=== PATIENT | female | born 1995 | race Caucasian/White ===

== ENCOUNTER 2019-04-04 10:18 | Outpatient (CLI) | payer OTHER ==
[~2019-04-04] VITALS: Ht 162.6 cm; Wt 66.6 kg
[2019-04-04 10:59] VITALS: Ht 162.6 cm; Wt 66.6 kg
[2019-04-04 11:00] VITALS: BP 105/62; PULSE 101; RESP 18
[2019-04-04] MEDS ORDERED: LACTATED RINGER'S 1,000 ML IV SCH (12:00)
[2019-04-04] MEDS ORDERED: TERBUTALINE 1 MG/ML INJ SC ONE ×2 (12:00→14:00)
--- NOTE | 2019-04-04 17:29 | PN ---
Triage Information Date/Time Reason for visit: Cough and cold symptoms Weeks of Gestation 30 weeks and 2 days /Para G1 Diabetes: none Hypertention: none Objective Vital Signs Date Temp Pulse Resp B/P (MAP) Pulse Ox O2 O2 Flow FiO2 Time Delivery Rate 04/04/19 98.4 101 18 105/62 11:00 (76) Heart Rate: 140's Contractions: 6-10 Minutes Apart Results/Medications Result Diagram: 04/04/19 1155 Results 24 hrs Laboratory Tests Test 04/04/19 10:40 04/04/19 11:55 Urine Color YELLOW Urine Clarity CLEAR Urine pH 6.0 Urine Specific [place] 1.011 Urine Ketones NEGATIVE Urine Nitrite NEGATIVE Urine Bilirubin NEGATIVE Urine Urobilinogen NEGATIVE Urine Leukocyte Esterase NEGATIVE Urine Hemoglobin NEGATIVE Urine Glucose 1+ H Urine Total Protein NEGATIVE White Blood Count 13.9 H Red Blood Count 3.77 L Hemoglobin 10.4 L Hematocrit 32.3 L Mean Corpuscular Volume 85.7 Mean Corpuscular Hemoglobin 27.6 L Mean Corpuscular Hemoglobin Concent 32.2 Red Cell Distribution Width 12.7 Platelet Count 166 Mean Platelet Volume 12.7 H Immature Granulocytes % 1.000 H Neutrophils % 78.2 H Lymphocytes % 11.1 L Monocytes % 8.7 Eosinophils % 0.8 Basophils % 0.2 Nucleated Red Blood Cells % 0.0 Immature Granulocytes # 0.140 H Neutrophils # 10.9 H Lymphocytes # 1.5 Monocytes # 1.2 H Eosinophils # 0.1 Basophils # 0.0 Nucleated Red Blood Cells # 0.0 Medications Current Medications Lactated Ringer's 1,000 ml @ 125 mls/hr Q8H IV Last administered on 04/04/19at 11:53; Admin Dose 125 MLS/HR; Start 04/04/19 at 12:00 Disposition: Discharge Assessment/Plan 23 years old 1 with single intrauterine at 30 weeks and 2 days complaining of cough and cold symptoms. She states good movement. She denies nausea, vomiting, shortness of breath, chest pain, headache, visual changes, vaginal bleeding or LOF. She had one variable deceleration for 20 seconds, observed in triage for more than 2 hours after having variable deceleration, no further deceleration noted. FHR currently is category I. Biophysical profile performed which is 8 out of 8. She had uterine contractions every 4-7 minutes. Ultrasound performed, normal amniotic fluid index. Cervical length 4.3 cm. IV fluid and one dose of terbutaline given. There is no further uterine contractions. Vaginal exam: Closed/Thick/high/ceph/intact.I did rec ommend increase fluid intake, take Tylenol and Benadryl. Symptoms and sign of labor, preeclampsia, kick count discussed with patient, she voiced understanding. All of her questions answered. Patient was discharged home in stable condition with the appropriate discharge instructions provided. I would like patient to have close follow-up with her primary physician or outpatient clinic in 1-2 days or return to triage for worsening symptoms or any other urgent concerns. PAUL ZHAO Apr 04, 2019 17:29
--- NOTE | 2019-04-04 18:36 | TRIAGE ---
OB Triage Datetime Report Generated by CPN: 04/04/2019 18:36 Datetime: 04/04/2019 18:04 Stage of : OB Triage Datetime: 04/04/2019 17:59 Exam By: S KIAN Datetime: 04/04/2019 17:50 Labor Evaluation Frequency: 0 Monitor Mode: External Pattern: Normal: <= 5 Contractions in 10 Minutes Resting Tone [place]: Relaxed Heart Rate FHR Baseline Rate: 145 Monitor Mode: External US Variability: Moderate 6-25 bpm Accelerations: 10X10 Decelerations: None Category: Category I Pain Assessment Pain Scale: 0 Pain Presence: None/Denies Pain Type: N/A Pain Goal: 3 Pain Relief Measures: Comfort Measures Datetime: 04/04/2019 16:55 Labor Evaluation Frequency: 0 Monitor Mode: External Pattern: Normal: <= 5 Contractions in 10 Minutes Resting Tone [place]: Relaxed Heart Rate FHR Baseline Rate: 165 Monitor Mode: External US Variability: Moderate 6-25 bpm Accelerations: 10X10 Decelerations: None Category: Category I Pain Assessment Pain Scale: 0 Pain Presence: None/Denies Pain Type: N/A Pain Goal: 3 Pain Relief Measures: Comfort Measures Datetime: 04/04/2019 15:54 Labor Evaluation Frequency: X1 Monitor Mode: External Duration (sec)2399: 40 Pattern: Normal: <= 5 Contractions in 10 Minutes Resting Tone [place]: Relaxed Heart Rate FHR Baseline Rate: 155 Monitor Mode: External US Variability: Moderate 6-25 bpm Accelerations: 10X10 Decelerations: None Category: Category I Pain Assessment Pain Scale: 0 Pain Presence: None/Denies Pain Type: N/A Pain Goal: 3 Pain Relief Measures: Comfort Measures Datetime: 04/04/2019 15:47 Stage of : OB Triage Datetime: 04/04/2019 15:09 Labor Evaluation Frequency: 0 Monitor Mode: External Pattern: Normal: <= 5 Contractions in 10 Minutes Resting Tone [place]: Relaxed Heart Rate FHR Baseline Rate: 155 Monitor Mode: External US Variability: Moderate 6-25 bpm Accelerations: 10X10 Decelerations: None Category: Category I Pain Assessment Pain Scale: 0 Pain Presence: None/Denies Pain Type: N/A Pain Goal: 3 Pain Relief Measures: Comfort Measures Datetime: 04/04/2019 13:59 Labor Evaluation Frequency: 4-6 Monitor Mode: External Duration (sec)2399: 40-60 Pattern: Normal: <= 5 Contractions in 10 Minutes Resting Tone [place]: Relaxed Heart Rate FHR Baseline Rate: 155 Monitor Mode: External US Variability: Moderate 6-25 bpm Accelerations: 10X10 Decelerations: None Category: Category I Pain Assessment Pain Scale: 2 Pain Presence: Intermittent Pain Type: Cramping Pain Location: Perineum Pain Goal: 3 Pain Relief Measures: Comfort Measures Datetime: 04/04/2019 13:49 Stage of : OB Triage Datetime: 04/04/2019 13:23 Labor Evaluation Frequency: 4-7 Monitor Mode: External Duration (sec)2399: 40-70 Quality: Mild Pattern: Normal: <= 5 Contractions in 10 Minutes Resting Tone [place]: Relaxed Heart Rate FHR Baseline Rate: 145 Monitor Mode: External US Variability: Moderate 6-25 bpm Decelerations: None Category: Category I Pain Assessment Pain Scale: 0 Pain Presence: None/Denies Pain Type: N/A Pain Goal: 3 Pain Relief Measures: Comfort Measures Datetime: 04/04/2019 13:15 EGA: 30.2 Datetime: 04/04/2019 13:14 EGA: 30.2 Datetime: 04/04/2019 12:57 Stage of : OB Triage Datetime: 04/04/2019 12:54 Vaginal Exam Dilatation (cms): 0.0 Exam By: S KIAN Vaginal Bleeding: None Cervix, Consistency: Firm Cervix, Position: Posterior Datetime: 04/04/2019 11:32 Stage of : OB Triage Datetime: 04/04/2019 11:28 Labor Evaluation Frequency: 6-8 Monitor Mode: External Duration (sec)2399: 30-50 Pattern: Normal: <= 5 Contractions in 10 Minutes Resting Tone [place]: Relaxed Comments: REMOVED Pain Assessment Pain Scale: 3 Pain Presence: Intermittent Pain Type: Pressure Pain Location: Perineum Pain Goal: 0 Pain Relief Measures: Comfort Measures Datetime: 04/04/2019 11:06 Comments: REMOVED DUE TO GESTATIONAL AGE Datetime: 04/04/2019 10:47 Stage of : OB Triage Datetime: 04/04/2019 10:35 EGA: 30.2 Datetime: 04/04/2019 10:31 Stage of : OB Triage Assessment Type: Triage Maternal Assessment Level of Consciousness: Keenly Alert, Responsive DTR's/Clonus: DTRs 2+; No Clonus Headache: Denies Blurred Vision: No Respiratory Effort: Unlabored; Regular Rhythm; Equal Expansion Breath Sounds, Left: Clear and Equal Breath Sounds, Right: Clear and Equal Nausea/Vomiting: Denies RUQ Epigastric Pain: Denies Facial Edema: None Temperature Route: Axillary Fall Risk Assessment History of Falling: (0) No Secondary Diagnosis: (0) No Ambulatory Aid: (0) Bedrest/Nurse Assist IV Therapy: (0) No Gait: (0) Normal/Bedrest/Immobile Mental Status: (0) Oriented to Own Ability Fall Score: 0 Fall Risk Score Definition: No Risk: No action required Labor Evaluation Frequency: X2 (Annotations: 15 MIN APART) Monitor Mode: External Quality: Mild Pattern: Normal: <= 5 Contractions in 10 Minutes Resting Tone [place]: Relaxed Heart Rate FHR Baseline Rate: 145 Monitor Mode: External US Variability: Moderate 6-25 bpm Decelerations: None Pain Assessment Pain Scale: 0 Pain Presence: None/Denies Pain Type: N/A Pain Goal: 3 Pain Relief Measures: Comfort Measures Datetime: 04/04/2019 10:28 Time of Arrival: 04/04/2019 09:51 EGA: -21.6 Arrived By: Ambulatory Arrived From: Home Chief Complaint: C/O COUGH, CHEST CONGESTION AND FEVER, DENIES LEAKING, BLEEDING OR UC'S Movement: Present Contractions: Denies/Absent Rupture of Membranes: Denies Vaginal Bleeding: None Vaginal Discharge: Denies Recent Sexual Intercouse: Denies Abdominal Trauma: Not Applicable Patient Complaints: Cough; Runny Nose Time Provider Notified: 04/04/2019 10:47 Provider Notified: liz Initial Plan: MONITOR, ua, cl, ve, terb, iv hydration, bpp
== END 2019-04-04 18:00 | disposition home or self-care (01) ==
LOC: OBT 10:18 → L-D 10:20 → OBT 18:00
PROVIDERS: ATTEND Obstetrics & Gynecology
DX: O99.513 Diseases of the respiratory system complicating pregnancy, third trimester (principal); R05 Cough; Z3A.30 30 weeks gestation of pregnancy
CPT/HCPCS: 36415; 76817; 76818; 81003; 85025; 87086; 96360; 96361; 96372; J3105; J7120; Z7500; G0463

== ENCOUNTER 2019-04-06 09:31 | Inpatient (IN) | payer OTHER ==
[~2019-04-06] VITALS: Ht 162.6 cm; Wt 66.5 kg
[2019-04-06 09:59] VITALS: Ht 162.6 cm; Wt 66.5 kg
[2019-04-06 10:00] VITALS: BP 106/59; PULSE 84; RESP 18
[2019-04-06] MEDS ORDERED: PNV11TAB PO (10:01)
[2019-04-06] MEDS ORDERED: TERBUTALINE 1 MG/ML INJ SC ONE ×2 (14:00→17:30)
[2019-04-06] MEDS ORDERED: LACTATED RINGER'S 1,000 ML IV SCH ×2 (14:00→16:00)
--- NOTE | 2019-04-06 17:34 | HP ---
Date/Time of Note Date/Time of Note DATE: 04/06/19 TIME: 17:30 OB - History Hx of Present Free Text/Dictation 23-year-old female 1 para 0 at 30+ weeks admitted complaining of onset of uterine contractions in a.m. She denies rupture of membrane no vaginal bleeding Patient was seen in OB triage 2 days prior to this admission was sent home by on-call physician and claims contractions persist during this hospital referral patient received 2 times subcutaneous terbutaline and is still has uterine contractions Chief Complaint: Labor contractions Last Menstrual Period: Aug 25, 2018 Estimated Due Date: Jun 10, 2019 : 1 Para: 0 Care: Good Care Ultrasounds: Normal mid trimester US Obstetrical Complications: None, Other ( contractions) Medical Complications: None Past Family/Social History * Past Medical, Surgical, Family and Obstetric Histories reviewed from chart. Blood Type: O+ Rubella: immune RPR/VDRL: Negative GBS Status: Unknown HBsAG: Negative OB Admission Exam Vital Signs Vital Signs Vital Signs Date Temp Pulse Resp B/P (MAP) Pulse Ox O2 O2 Flow FiO2 Time Delivery Rate 04/06/19 98.1 84 18 106/59 10:00 (75) Physical Exam HEENT: WNL Heart: Rhythm Normal Lungs: Clear, Equal Abdomen: WNL Extremities: Normal Reflexes: Normal Cervical Dilatation: None Effacement: 0% Station: -3 Membranes: Intact Heart Rate: 140's Accelerations: Accelerations Present Decelerations: No Decelerations Contractions on Admission: 6-10 Minutes Apart Date/Time Contractions Began: 04/06/2019 at 9 AM Frequency of Contractions: Every 5 to 10 minutes Intensity: Mild OB Assessment/Plan Reason for admission: labor Other Assessment: 30+ weeks gestation Other plan: Started on magnesium sulfate for neuro prophylaxis Steroids for enhanced lung maturation We will DC magnesium sulfate in 24 to 48-hour Most probably patient is going to be placed on p.o. nifedipine MAHSA CARDENAS MD Apr 06, 2019 17:34
[2019-04-06] MEDS ORDERED: MAGNESIUM SULFATE 4 GM/100 ML 100 ML IV ONE (18:00)
[2019-04-06] MEDS: BETAMET NA PHOS/AC(6 MG/ML) 2 ML INJ SYG IM SCH (18:54)
[2019-04-06] MEDS: LACTATED RINGER'S 1,000 ML IV SCH (18:55)
[2019-04-06] MEDS: MAGNESIUM SULFATE 20 GM/500 ML 500 ML IV SCH (19:55)
[2019-04-07] MEDS: LACTATED RINGER'S 1,000 ML IV SCH ×2 (02:17→15:01)
[2019-04-07] MEDS: MAGNESIUM SULFATE 20 GM/500 ML 500 ML IV SCH ×2 (05:39→15:04)
[2019-04-07] MEDS ORDERED: GUAIFENESIN/DM 5ML CUP PO PRN (13:30)
[2019-04-07] MEDS ORDERED: AL HYDROX/MG HYDROX/SIMETH 30 ML CUP PO PRN (13:30)
[2019-04-07] MEDS ORDERED: ACETAMINOPHEN 325 MG TAB PO PRN (13:30)
[2019-04-07] MEDS ORDERED: SALINE 0.65% 45 ML NAS SPRAY NASAL PRN (14:30)
[2019-04-07] MEDS: BETAMET NA PHOS/AC(6 MG/ML) 2 ML INJ SYG IM SCH (18:08)
--- NOTE | 2019-04-07 18:52 | QN ---
Documentation Comment Patient with sporadic uterine contractions and no complaint of uterine con tractions We will discontinue magnesium sulfate at midnight and start on p.o. nifedipine Anticipate discharge following day MAHSA CARDENAS MD Apr 07, 2019 18:52
--- NOTE | 2019-04-07 18:53 | DS ---
Date/Time of Note Date/Time of Note Home following day if remains stable on p.o. nifedipine DATE: 04/07/19 TIME: 18:52 Obstetrical Discharge Record Final Diagnosis Final Diagnosis: delivered Other Final Diagnosis contractions at 30 weeks Complications Labor Tocolytics: Magnesium Sulfate, Terbutaline, Other (Nifedipine) Condition on Discharge Physical Assessment Last Vitals: See nurse's notes Voiding: Yes Bowel Movement: Yes Breast: Soft, non-tender, Filling Fundus: Other Abdomen and Incision: Abdomen is soft and also soft fundus no palpable contractions and heart tones are reactive Calf Tenderness: No Patient Condition: Good MAHSA CARDENAS MD Apr 07, 2019 18:53
[2019-04-07] MEDS ORDERED: NIFE10CA PO (18:55)
--- NOTE | 2019-04-07 18:55 | PD.PPDC ---
[employer] Discharge Instruction Provider Information Physician Information 23-year-old female contractions which were tocolysed using magnesium sulfate and stayed stable on p.o. nifedipine Diagnosis [id number] Final Diagnosis: [id number] contractions Condition Xekam3Gl Patient Condition: Ilfkv2t Good Diet Maacu2Bi Diet: Mcjhb5k Resume Regular Diet Activity/Restrictions Bcesm9Lb Activity: Jqidb5f Bedrest May Shower [id number] Restrictions: Cxapi4y No Exercising No Lifting Minimize Walking Minimize Stair-climbing Nothing in the Vagina No Elida [id number] Return to Work or School: [id number] Jul 23, 2019 Follow-up Follow-up with Physician: 1, 2, Day/Days (In clinic for follow-up) Return to clinic for Comment: Pelvic and bedrest until delivery MAHSA CARDENAS MD Apr 07, 2019 18:55
[2019-04-07] MEDS: NIFEdipine 10 MG CAP PO SCH (23:56)
[2019-04-08] MEDS: NIFEdipine 10 MG CAP PO SCH (05:56)
[2019-04-08] MEDS ORDERED: NIFEdipine 10 MG CAP PO SCH (19:00)
== END 2019-04-08 09:00 | disposition home or self-care (01) | DRG 833 ==
LOC: OBT 09:31 → L-D 09:32 → OBT 17:30 → PP1 22:35
PROVIDERS: ADMIT Obstetrics & Gynecology; ATTEND Obstetrics & Gynecology
DX: O47.03 False labor before 37 completed weeks of gestation, third trimester (principal); Z3A.30 30 weeks gestation of pregnancy
CPT/HCPCS: 76818; 81001; 83735; 87086; 96360; 96361; 96372; G0463; J0702; J3105; J3475; J7120

== ENCOUNTER 2019-05-03 17:38 | Outpatient (CLI) | payer OTHER ==
[~2019-05-03] VITALS: Ht 162.6 cm; Wt 69.1 kg
[~2019-05-03 17:38] MED LIST: CALC600T24 PO; IBUP-1542 PO; PNV11TAB PO
[2019-05-03 19:21] VITALS: BP 106/57; PULSE 95; RESP 18
[2019-05-03 19:23] VITALS: Ht 162.6 cm; Wt 69.1 kg
[2019-05-03] MEDS ORDERED: BETAMET NA PHOS/AC(6 MG/ML) 2 ML INJ SYG IM SCH (21:00)
--- NOTE | 2019-05-04 00:12 | TRIAGE ---
OB Triage Datetime Report Generated by CPN: 05/04/2019 00:12 Datetime: 05/03/2019 20:50 Stage of : OB Triage Datetime: 05/03/2019 20:15 Stage of : OB Triage Datetime: 05/03/2019 19:31 Stage of : OB Triage Frequency: none Monitor Mode: External Pattern: Normal: <= 5 Contractions in 10 Minutes Resting Tone [place]: Relaxed FHR Baseline Rate: 130 Monitor Mode: External US Variability: Moderate 6-25 bpm Accelerations: 15X15 Decelerations: None Category: Category I Pain Scale: 0 Pain Presence: None/Denies Pain Type: N/A Pain Relief Measures: Comfort Measures Datetime: 05/03/2019 19:28 Stage of : OB Triage Assessment Type: Triage Level of Consciousness: Keenly Alert, Responsive DTR's/Clonus: DTRs 2+; No Clonus Headache: Denies Blurred Vision: No Respiratory Effort: Unlabored; Regular Rhythm; Equal Expansion Breath Sounds, Left: Clear and Equal Breath Sounds, Right: Clear and Equal Nausea/Vomiting: Denies RUQ Epigastric Pain: Denies Lower Extremities Edema: None Degree: None Upper Extremities Edema: None Degree: None Facial Edema: None Temperature Route: Axillary History of Falling: (0) No Secondary Diagnosis: (0) No Ambulatory Aid: (0) Bedrest/Nurse Assist IV Therapy: (0) No Gait: (0) Normal/Bedrest/Immobile Mental Status: (0) Oriented to Own Ability Fall Score: 0 Fall Risk Score Definition: No Risk: No action required Datetime: 05/03/2019 19:27 Time of Arrival: 05/03/2019 17:30 EGA: 34.3 Arrived By: Ambulatory Arrived From: Home Chief Complaint: 2nd steroid shot Movement: Present Contractions: Denies/Absent Rupture of Membranes: Denies Vaginal Bleeding: None Vaginal Discharge: Denies Recent Sexual Intercouse: Denies Abdominal Trauma: Not Applicable Patient Complaints: None Time Provider Notified: 05/03/2019 19:45 Provider Notified: Víctor Initial Plan: VS, NST, Beta #2 Datetime: 05/02/2019 15:27 Fall Score: 0 Fall Risk Score Definition: No Risk: No action required Datetime: 05/02/2019 15:26 EGA: 34.2
--- NOTE | 2019-05-04 00:54 | PN ---
Triage Information Date/Time 0049 Reason for visit: 2nd dose of BMZ Weeks of Gestation 34w3d /Para primigravida Diabetes: none Hypertention: none Additional information she was here for PTL ON 05/02/19, HAD X1 DOSE OF bmz AFTER TERBUTALINE GIVEN ,SENT HOME Objective Vital Signs Date Temp Pulse Resp B/P (MAP) Pulse Ox O2 O2 Flow FiO2 Time Delivery Rate 05/03/19 98.9 95 18 106/57 96 Room Air 19:21 (73) Heart Rate: 140's Heart Rate Comments cat i Contractions: None Results/Medications Medications bmz Disposition: Discharge Assessment/Plan A IUP 34w3d for second dose of BMZ P discharge home with routine labor instructions f/u with her OB ROBERT WELLER MD May 04, 2019 00:54
== END 2019-05-03 21:05 | disposition home or self-care (01) ==
LOC: OBT 17:38 → L-D 17:39 → OBT 21:05
PROVIDERS: ATTEND Obstetrics & Gynecology
DX: O62.9 Abnormality of forces of labor, unspecified (principal); Z3A.34 34 weeks gestation of pregnancy
CPT/HCPCS: J0702

== ENCOUNTER 2019-05-07 04:45 | Inpatient (IN) | payer OTHER ==
[~2019-05-07] VITALS: Ht 162.6 cm; Wt 70.0 kg
[~2019-05-07 04:45] MED LIST changes: -CALC600T24 PO; -IBUP-1542 PO
[2019-05-07 05:07] VITALS: BP 100/56; PULSE 74; RESP 17
[2019-05-07] MEDS ORDERED: CALC600T24 PO (05:10)
[2019-05-07] MEDS ORDERED: LACTATED RINGER'S 1,000 ML IV PRN (06:59)
[2019-05-07] MEDS ORDERED: LIDOCAINE 1% (MPF) 30 ML INJ INJ PRN (07:00)
[2019-05-07] MEDS ORDERED: MISOPROSTOL 200 MCG TAB PR PRN (07:00)
[2019-05-07] MEDS ORDERED: CARBOPROST 250 MCG INJ IM PRN (07:00)
[2019-05-07] MEDS ORDERED: IBUPROFEN 600 MG TAB PO PRN (07:00)
[2019-05-07] MEDS ORDERED: METHYLERGONOVINE 0.2 MG INJ IM PRN (07:00)
[2019-05-07] MEDS ORDERED: AMPICILLIN 2 GM/NS (PMX) 100 ML IV ONE (07:00)
[2019-05-07] MEDS ORDERED: OXYTOCIN 30 UNITS/LR 500 ML IV SCH ×3 (07:00)
[2019-05-07] MEDS ORDERED: BUTORPHANOL 2 MG INJ IV PRN ×2 (07:00)
[2019-05-07] MEDS ORDERED: OXYTOCIN 30 UNITS/LR 500 ML IV PRN (07:00)
--- NOTE | 2019-05-07 07:07 | TRIAGE ---
OB Triage Datetime Report Generated by CPN: 05/07/2019 07:07 Datetime: 05/07/2019 06:49 Stage of : OB Triage Labor Evaluation Monitor Mode: External Quality: Mild Pattern: Normal: <= 5 Contractions in 10 Minutes Resting Tone [place]: Relaxed Heart Rate FHR Baseline Rate: 150 Monitor Mode: External US FHR Baseline Changes: No Baseline Change Variability: Moderate 6-25 bpm Accelerations: 15X15 Decelerations: None Category: Category I ROM Test Kit: Positive Datetime: 05/07/2019 06:33 Membrane Status: Ruptured Datetime: 05/07/2019 05:54 Stage of : OB Triage Heart Rate FHR Baseline Rate: 150 Monitor Mode: External US FHR Baseline Changes: No Baseline Change Variability: Moderate 6-25 bpm Accelerations: 15X15 Decelerations: None Category: Category I Vaginal Exam Dilatation (cms): 0.0 Effacement (%): 50 Station: -2 Exam By: E Jonatan Amniotic Fluid Amount: None Amniotic Fluid Odor: None Vaginal Bleeding: None Pool: Negative Nitrazine: Negative Cervix, Consistency: Soft Cervix, Position: Posterior Presentation 'A': Cephalic Datetime: 05/07/2019 05:16 Stage of : OB Triage Labor Evaluation Monitor Mode: External Quality: Mild Pattern: Normal: <= 5 Contractions in 10 Minutes Resting Tone [place]: Relaxed Heart Rate FHR Baseline Rate: 150 Monitor Mode: External US FHR Baseline Changes: No Baseline Change Variability: Moderate 6-25 bpm Accelerations: 15X15 Decelerations: Late Category: Category II Datetime: 05/07/2019 04:57 Stage of : OB Triage Maternal Assessment Level of Consciousness: Keenly Alert, Responsive Headache: Denies Blurred Vision: No Nausea/Vomiting: Denies RUQ Epigastric Pain: Denies Facial Edema: None Labor Evaluation Monitor Mode: External Resting Tone [place]: Relaxed Heart Rate FHR Baseline Rate: 150 Monitor Mode: External US Pain Assessment Pain Scale: 0 Pain Presence: None/Denies Pain Type: Pressure Pain Location: Perineum Datetime: 05/07/2019 04:45 Time of Arrival: 05/07/2019 04:36 EGA: 35.0 Arrived By: Wheelchair Arrived From: Home Chief Complaint: w/ hx PTL c/o leaking fluid since 0140 and 2 ucs Movement: Present Contractions: Occasional (Annotations: Data stored by CPN on behalf of user) Rupture of Membranes: Unsure Vaginal Bleeding: None Vaginal Discharge: Present Recent Sexual Intercouse: Denies Abdominal Trauma: Not Applicable Patient Complaints: Other Time Provider Notified: 05/07/2019 05:15 Provider Notified: Dr St Initial Plan: EFM,SVE,ROM+,BPP,EFW,SPECULUM EXAM,UA,URINE CULTURE Datetime: 05/03/2019 19:28 Fall Risk Assessment Fall Score: 0 Fall Risk Score Definition: No Risk: No action required Datetime: 05/03/2019 19:27 EGA: 34.3 Datetime: 05/02/2019 15:27 Fall Risk Assessment Fall Score: 0 Fall Risk Score Definition: No Risk: No action required Datetime: 05/02/2019 15:26 EGA: 34.2 Datetime: 04/07/2019 19:35 Fall Risk Assessment Fall Score: 20 Fall Risk Score Definition: No Risk: No action required Datetime: 04/07/2019 07:46 Fall Risk Assessment Fall Score: 20 Fall Risk Score Definition: No Risk: No action required Datetime: 04/06/2019 17:53 EGA: 30.4 Datetime: 04/06/2019 09:44 Fall Risk Assessment Fall Score: 0 Fall Risk Score Definition: No Risk: No action required Datetime: 04/06/2019 09:43 EGA: 30.4 Datetime: 04/04/2019 13:15 EGA: 30.2 Datetime: 04/04/2019 13:14 EGA: 30.2 Datetime: 04/04/2019 10:35 EGA: 30.2 Datetime: 04/04/2019 10:31 Fall Risk Assessment Fall Score: 0 Fall Risk Score Definition: No Risk: No action required Datetime: 04/04/2019 10:28 EGA: -21.6
[2019-05-07] MEDS: LACTATED RINGER'S 1,000 ML IV SCH ×2 (08:13→20:51)
[2019-05-07] MEDS: AMPICILLIN 1 GM/NS (PMX) 50 ML IV SCH ×3 (13:10→21:00)
--- NOTE | 2019-05-07 17:34 | HP ---
Date/Time of Note Date/Time of Note DATE: 05/07/19 TIME: 17:30 OB - History Hx of Present Free Text/Dictation 23-year-old female 1 para 0 at 35+ weeks gestation admitted complaining of a spontaneous rupture of membrane at 1:30AM of 05/07/2019 Chief Complaint: Spontaneous rupture of membrane and onset of labor contractions Last Menstrual Period: Aug 25, 2018 Estimated Due Date: Jun 11, 2019 : 1 Para: 0 Care: Good Care Obstetrical Complications: Other ( contractions and short cervix) Medical Complications: None Past Family/Social History * Past Medical, Surgical, Family and Obstetric Histories reviewed from chart. Blood Type: O+ Rubella: immune RPR/VDRL: Negative GBS Status: Unknown HBsAG: Negative OB Admission Exam Vital Signs Vital Signs Vital Signs Date Temp Pulse Resp B/P (MAP) Pulse Ox O2 O2 Flow FiO2 Time Delivery Rate 05/07/19 98.6 74 17 100/56 Room Air 05:07 (71) Physical Exam HEENT: WNL Heart: Rhythm Normal Lungs: Clear, Equal Abdomen: WNL Extremities: Normal Reflexes: Normal Cervical Dilatation: None Effacement: 0% Station: -3 Membranes: Ruptured Amniotic Fluid: Clear Heart Rate: 140's Accelerations: Accelerations Present Decelerations: No Decelerations Varibility: Marked Contractions on Admission: 6-10 Minutes Apart Date/Time Contractions Began: 05/07/2019 at 1:30 AM Frequency of Contractions: Every 5 to 10 minutes Duration: Over 30 seconds Intensity: Mild Last 72 hours Lab Results CBC & BMP 05/07/19 07:40 OB Assessment/Plan Reason for admission: labor, rupture of membranes Other Assessment: spontaneous rupture of membrane at 35+ weeks which is confirmed by ROM plus test Other plan: Pitocin augmentation of labor Patient received steroids a few days before Third IV antibiotics Continue augmentation of labor until delivery of care MAHSA CARDENAS MD May 07, 2019 17:34
--- NOTE | 2019-05-07 18:14 | PREAC ---
Date/Time of Note Date/Time of Note DATE: 05/07/19 TIME: 18:13 Anesthesia Eval and Record Evaluation Time Pre-Procedure Interview DATE: 05/07/19 TIME: 18:13 Age 23 Sex female NPO: Other (n/a) Preoperative diagnosis intrauterine Planned procedure labor epidural Past Medical History Past Medical History: Includes Heme: Anemia : Gestational age: (35), Other (rupture of membranes) Surgery & Anesthesia Issues No known issue Meds Anticoagulation: No Beta Stoney within 24 hr: No Reason Beta Stoney not given: Pt. not on B-Stoney Reported Medications Calcium Carbonate* (Calcium Carbonate*) 600 MG Ca Tab, 600 MG PO DAILY, TAB 05/07/19 [id number] ( ) 1 Each Tablet, 1 TAB PO DAILY, TAB 04/06/19 Discontinued Scripts Nifedipine* (Procardia*) 10 Mg Capsule, 20 MG PO Q6, #120 CAP 1 Refill Prov:MAHSA CARDENAS MD 04/07/19 Current Medications Lactated Ringer's 1,000 ml @ 125 mls/hr Q8H IV Last administered on 05/07/19at 08:13; Admin Dose 125 MLS/HR; Start 05/07/19 at 06:59 Ampicillin 50 ml @ 100 mls/hr Q4H IV Last administered on 05/07/19at 17:15; Admin Dose 100 MLS/HR; Start 05/07/19 at 11:00 Butorphanol Tartrate (Stadol) 1 mg Q2H PRN IV .PAIN SCALE 1-5; Start 05/07/19 at 07:00 Butorphanol Tartrate (Stadol) 2 mg Q2H PRN IV .PAIN SCALE 6-10; Start 05/07/19 at 07:00 Lidocaine (Xylocaine 1% (Mpf)) 30 ml ONCE PRN INJ .EPISIOTOMY; Start 05/07/19 at 07:00 Oxytocin/Lactated Ringer's 500 ml @ 500 mls/hr ONCE POST IV ; Start 05/07/19 at 07:00 Oxytocin/Lactated Ringer's 500 ml @ 125 mls/hr POST IV ; Start 05/07/19 at 07:00 Ibuprofen (Motrin) 600 mg ONCE PRN PO .PAIN 1-5; Start 05/07/19 at 07:00 Lactated Ringer's 1,000 ml @ 2,000 mls/hr Q30M PRN IV .ANESTHESIA; Start 05/07/19 at 06:59 Oxytocin/Lactated Ringer's 500 ml @ 0 mls/hr ONCE PRN IV .VAGINAL BLEEDING; Start 05/07/19 at 07:00 Methylergonovine Maleate (Methergine) 0.2 mg ONCE PRN IM .VAGINAL BLEEDING; Start 05/07/19 at 07:00 Carboprost Tromethamine (Hemabate) 250 mcg ONCE PRN IM .VAGINAL BLEEDING; Start 05/07/19 at 07:00 Misoprostol (Cytotec) 1,000 mcg ONCE PRN [place] .VAGINAL BLEEDING; Start 05/07/19 at 07:00 Oxytocin/Lactated Ringer's 500 ml @ 0 mls/hr FOR AUGMENTATION IV Last administered on 05/07/19at 08:56; Admin Dose 1 MLS/HR; Start 05/07/19 at 07:00 Meds reviewed: Yes Allergies Coded Allergies: No Known Allergy (Unverified , 05/07/19) Allergies Reviewed: Yes Labs/Studies Labs Reviewed: Reviewed by anesthesiologist Result Diagram: 05/07/19 0740 Laboratory Tests 05/07/19 07:40 Blood Bank Test 05/07/19 07:40 Antibody Screen NEGATIVE Blood Type O POSITIVE Rh Immune Globulin Candidate NO test: N/A Pre-procedure Exam Last vitals Vital Signs Date Temp Pulse Resp B/P (MAP) Pulse Ox O2 O2 Flow FiO2 Time Delivery Rate 05/07/19 98.6 74 17 100/56 Room Air 05:07 (71) Airway: Adequate mouth opening, Adequate thyromental dist Mallampati: Mallampati II Teeth: Normal Lung: Normal Heart: Normal ASA Physical Status ASA physical status: 2 Emergency: None Planned Anesthetic Neuraxial: Epidural Planned Pain Management Epidural, Parenteral pain med Pre-operative Attestations Prior to commencing anesthesia and surgery, the patient was re-evaluated, there was verification of: *The patient's identity *The results of appropriate recent lab work and preoperative vital signs *The above evaluation not changing prior to induction *Anesthetic plan, risk benefits, alternative and complications discussed with patient/family; questions answered; patient/family understands, accepts and wishes to proceed. NOLA THRASHER MD May 07, 2019 18:14
[2019-05-07] MEDS ORDERED: FENTAnyl 2MCG/ML-ROPIV 0.2% 100 ML ONE (18:17)
[2019-05-07] MEDS ORDERED: ONDANSETRON 4 MG INJ IV PRN (18:30)
[2019-05-07] MEDS ORDERED: DIPHENHYDRAMINE 50 MG INJ IV PRN (18:30)
[2019-05-07] MEDS ORDERED: NALOXONE (0.4 MG/ML) INJ IV PRN (18:30)
--- NOTE | 2019-05-07 20:16 | PAC ---
Date/Time of Note Date/Time of Note DATE: 05/07/19 TIME: 20:16 Post-Anesthesia Notes Post-Anesthesia Note Last documented vital signs Vital Signs Date Temp Pulse Resp B/P (MAP) Pulse Ox O2 O2 Flow FiO2 Time Delivery Rate 05/07/19 98.6 74 17 100/56 Room Air 05:07 (71) Activity: WNL Respiratory function: WNL Cardiovascular function: WNL Mental status: Baseline Pain reasonably controlled: Yes Hydration appropriate: Yes Nausea/Vomiting absent: Yes Comments Bp: 107/64 HR: 68 RR: 15 T: 98.6 SaO2: 99% NOLA THRASHER MD May 07, 2019 20:16
[2019-05-07] MEDS: FENTAnyl 2MCG/ML-ROPIV 0.2% 100 ML BAG EPI SCH (23:46)
[2019-05-08] MEDS: AMPICILLIN 1 GM/NS (PMX) 50 ML IV SCH ×5 (01:28→18:22)
[2019-05-08] MEDS: LACTATED RINGER'S 1,000 ML IV SCH ×3 (02:16→19:56)
[2019-05-08] MEDS ORDERED: SOD CHLORIDE 0.9% 500 ML IV ONE (02:30)
[2019-05-08] MEDS: FENTAnyl 2MCG/ML-ROPIV 0.2% 100 ML BAG EPI SCH ×4 (04:22→18:22)
[2019-05-08] MEDS ORDERED: MINERAL OIL LIGHT 10 ML VIAL TOP PRN (20:00)
[2019-05-08] MEDS ORDERED: ACETAMINOPHEN 500 MG TAB PO STA (20:56)
[2019-05-08] MEDS ORDERED: KETOROLAC 30 MG INJ IV STA (20:56)
--- NOTE | 2019-05-08 20:56 | LDN ---
Date/Time of Note Date/Time of Note DATE: 05/08/19 TIME: 20:53 Delivery Summary Normal spontaneous vaginal delivery of a viable over intact perineum Weeks of Gestation 35 weeks Placenta Delivered: Spontaneously, Intact & Complete Meconium: none Episiotomy: No Perineal laceration: 0 Anesthesia type: Epidural Estimated blood loss: 300 Sponge & Needle done & correct: Yes All needle counts correct: Yes Any foreign bodies felt in the: No Delivery Information Sex Infant Sex: male Apgars 1 Minute: 9 5 Minute: 9 Suctioning Nose & mouth suctioned at lili: Yes Delee suction performed: No Umbilical Cord Umbilical cord with: 3 Vessels Cord presentations: nuchal cord Nuchal cord present X: 1 Cord Blood was obtained: Yes Mother & Baby Disposition Disposition Mom & Baby to Maternity; Good: Yes (Mother and baby were recovering in good condition) Mom transferred to: Other (Maternity) Baby to NICU: No MAHSA CARDENAS MD May 08, 2019 20:56
[2019-05-08 23:10] VITALS: BP 126/73; PULSE 75; RESP 18
[2019-05-09] MEDS ORDERED: LACTATED RINGER'S 1,000 ML IV* SCH (00:02)
[2019-05-09] MEDS: IBUPROFEN 600 MG TAB PO SCH ×5 (00:24→23:29)
[2019-05-09] MEDS ORDERED: METHYLERGONOVINE 0.2 MG INJ IM PRN (00:30)
[2019-05-09] MEDS ORDERED: CARBOPROST 250 MCG INJ IM PRN (00:30)
[2019-05-09] MEDS ORDERED: MISOPROSTOL 200 MCG TAB PR PRN (00:30)
[2019-05-09] MEDS ORDERED: ZOLPIDEM 5 MG TAB PO PRN (00:30)
[2019-05-09] MEDS ORDERED: OXYTOCIN 30 UNITS/LR 500 ML IV PRN (00:30)
[2019-05-09] MEDS ORDERED: DIBUCAINE 1% 30 GM OINT TOP PRN (00:30)
[2019-05-09] MEDS ORDERED: HYDROCODONE/APAP (5/325) TAB PO PRN ×2 (00:30)
[2019-05-09] MEDS ORDERED: LANOLIN HPA 1 PKT TOP PRN (00:30)
[2019-05-09] MEDS ORDERED: BENZOCAINE 20% 56 ML SPRAY TOP PRN (00:30)
[2019-05-09] MEDS ORDERED: WITCH HAZEL/GLYCERIN PAD PR PRN (00:30)
[2019-05-09 04:15] VITALS: BP 99/60; PULSE 65; RESP 18
[2019-05-09] MEDS: CEPHALEXIN 500 MG CAP PO SCH ×4 (05:25→23:29)
[2019-05-09 09:30] VITALS: BP 103/68; PULSE 65; RESP 16
[2019-05-09] MEDS: MAGNESIUM HYDROXIDE 30ML CUP PO SCH ×2 (10:52→21:20)
[2019-05-09] MEDS: SENNA/DOCUSATE NA (8.6MG/50MG) TAB PO SCH ×2 (10:52→21:20)
--- NOTE | 2019-05-09 14:12 | DS ---
Date/Time of Note Date/Time of Note Home today or next day DATE: 05/09/19 TIME: 14:11 Obstetrical Discharge Record Final Diagnosis Final Diagnosis: delivered Other Final Diagnosis Status post delivery Vaginal Delivery Obstetrical Delivery: Spontaneous Complications Augmentation: Yes Condition on Discharge Physical Assessment Last Vitals: See nurse's note Voiding: Yes Bowel Movement: Yes Breast: Soft, non-tender, Filling Fundus: Firm Abdomen and Incision: Abdomen is soft with firm fundus Episiotomy: Perineum is clean Calf Tenderness: No Patient Condition: Good MAHSA CARDENAS MD May 09, 2019 14:12
[2019-05-09] MEDS ORDERED: IBUP-1542 PO (14:14)
--- NOTE | 2019-05-09 14:14 | PD.PPDC ---
WET ROOM WORKER Discharge Instruction Provider Information Physician Information 23-year-old female with history of labor delivered at 35 weeks Diagnosis [id number] Final Diagnosis: [id number] Status post delivery Condition Trynu3Lx Patient Condition: Wwtjn3r Good Diet [id number] Diet: Umyon6k Resume Regular Diet Activity/Restrictions [id number] Activity: [id number] Normal Activity May Shower Evcor5Lz Restrictions: Nzdix9j Nothing in the Vagina [id number] Return to Work or School: [id number] Jul 02, 2019 Follow-up Follow-up with Physician: 2, 4, Week/Weeks (In clinic for follow-up) Return to clinic for [id number] OB Instructions: Xooph5k Breast Tenderness Depression Comment: Pelvic rest for 6 weeks MAHSA CARDENAS MD May 09, 2019 14:13
[2019-05-09 20:00] VITALS: BP 120/73; PULSE 75; RESP 20
[2019-05-10 04:05] VITALS: BP 121/62; PULSE 74; RESP 20
[2019-05-10] MEDS: IBUPROFEN 600 MG TAB PO SCH ×3 (05:18→17:36)
[2019-05-10] MEDS: CEPHALEXIN 500 MG CAP PO SCH ×3 (05:18→17:35)
[2019-05-10 07:50] VITALS: BP 102/55; PULSE 68; RESP 17
[2019-05-10] MEDS: SENNA/DOCUSATE NA (8.6MG/50MG) TAB PO SCH (08:47)
[2019-05-10] MEDS: MAGNESIUM HYDROXIDE 30ML CUP PO SCH (08:47)
[2019-05-10] MEDS ORDERED: VARICELLA VACCINE LIVE/PF 1,350 UNIT/0.5 ML ML SC* ONE (09:00)
[2019-05-10] MEDS ORDERED: MEASLES,MUMPS,RUBELLA VACCINE INJ SC* ONE (09:00)
[2019-05-10] MEDS ORDERED: DIPHTH/TET/ACEL PERTUSS (ADULT) 0.5 ML VIAL IM* ONE (09:00)
[2019-05-10 16:45] VITALS: BP_SYST 104; BP_SYST 110; BP_DIAS 61; BP_DIAS 63; PULSE 66; PULSE 85; RESP 17; RESP 18
--- NOTE | 2019-05-11 22:54 | DELSUM ---
Delivery Summary A-C Datetime Report Generated by CPN: 05/11/2019 22:53 DELIVERY PERSONNEL Heat Sealing Machine Operator: Tersigni, Kira MATERNAL INFORMATION Delivery Anesthesia: Epidural Medications in Delivery: LR 500ML PITOCIN 30 UNITS Delivery QBL (ml): 300 Placenta Cultured: No Maternal Complications: PROM; Other Other Maternal Complications: PPROM LABOR SUMMARY EDC: 06/11/2019 00:00 No. Babies in Womb: 1 Attempted: No Labor Anesthesia: Epidural LABOR INFORMATION Reason for Induction: Not Applicable Onset of Labor: 05/08/2019 02:26 Complete Dilatation: 05/08/2019 20:25 Group B Beta Strep: Not Done Antibiotics # of Doses: 9 Antibiotics Time of Last Dose: 05/08/2019 18:22 Steroids Given: Full Course Reason Steroids Not Administered: Indication MEMBRANES Membranes Rupture Method: Spontaneous Rupture of Membranes: 05/07/2019 01:40 Length of Rupture (hr): 43.07 Amniotic Fluid Color: Clear Amniotic Fluid Amount: Large Amniotic Fluid Odor: Normal STAGES OF LABOR Stage 1 hr: 17 Stage 1 min: 59 Stage 2 hr: 0 Stage 2 min: 19 Stage 3 hr: 0 Stage 3 min: 2 Total Time in Labor hr: 18 Total Time in Labor min: 20 VAGINAL DELIVERY Episiotomy: None Laceration Extension: N/A Laceration Type: None Laceration Repair: Not Applicable Initial Vag Sponge Count: 10 Final Vag Sponge Count: 10 Initial Vag Sharps Count: 1 Final Vag Sharps Count: 1 Sponge Count Correct: Yes; Vaginal Sweep Performed Sharps Count Correct: Yes BABY A INFORMATION Infant Delivery Date/Time: 05/08/2019 20:44 Method of Delivery: Vaginal Born in Route : No : N/A Forceps: N/A Vacuum Extraction: N/A Shoulder Dystocia : N/A SHOULDER DYSTOCIA BABY A Delivery Date/Time: 05/08/2019 20:44 PRESENTATION/POSITION BABY A Presentation: Cephalic Cephalic Presentation: Vertex Vertex Position: Left Occipital Anterior Breech Presentation: N/A PLACENTA INFORMATION BABY A Placenta Delivery Time : 05/08/2019 20:46 Placenta Method of Delivery: Spontaneous Placenta Status: Delivered SCORES BABY A Heart Rate 1 min: >100 bpm Resp Effort 1 min: Good Cry Reflex Irritability 1 min: Cough/Sneeze/Pulls Away Muscle Tone 1 min: Active Motion Color 1 min: Blue/Pale Resuscitation Effort 1 min: Tactile Stimulation; Oxygen SCORE 1 MIN: 8 Heart Rate 5 min: >100 bpm Resp Effort 5 min: Good Cry Reflex Irritability 5 min: Cough/Sneeze/Pulls Away Muscle Tone 5 min: Active Motion Color 5 min: Body [place], Extremit Blue Resuscitation Effort 5 min: Tactile Stimulation; Oxygen SCORE 5 MIN: 9 INFANT INFORMATION BABY A Gestational Age at Delivery: 35.1 Gestational Status: Late - 34- 36.6 Weeks Outcome : Liveborn, with signs of life Infant Condition : Stable Infant Sex: Male IDENTIFICATION/MEDS BABY A ID Band Number: [id number] ID Band Location: Right Leg; Left Arm Sensor Applied: Yes Sensor Number: [id number] Sensor Location : Cord Clamp Vitamin K Given : Not Given Erythromycin Given: Not Given WEIGHT/LENGTH BABY A Birthweight (gm): 3075 Weight (lb): 6 Infant Weight (oz): 12 Infant Length (in): 20.50 Infant Length (cm): 52.07 CORD INFORMATION BABY A No. Cord Vessels: 3 Nuchal Cord : Around Neck x1, Loose Cord Blood Taken: Yes Infant Suction: Mouth; Nose ASSESSMENT BABY A Complications: Decreased Variability; Multiple Variable Decels Physical Findings at Delivery: Within Normal Limits Infant Respirations: Grunting; Nasal Flaring Wheel Molder/ALS Called : Yes Infant Care By: LIBERAL ARTS TEACHER / RT / Irma RN Transferred To: Remains with Mother
== END 2019-05-10 20:00 | disposition home or self-care (01) | DRG 807 ==
LOC: OBT 04:45 → L-D 04:45 → OBT 06:49 → L-D 06:49 → PP1 05-08 23:05
PROVIDERS: ADMIT Obstetrics & Gynecology; ATTEND Obstetrics & Gynecology
PROC: 10E0XZZ Delivery of Products of Conception, External Approach (ICD-10-PCS; principal; 2019-05-08)
PROC: 3E033VJ Introduction of Other Hormone into Peripheral Vein, Percutaneous Approach (ICD-10-PCS; 2019-05-08)
DX: O60.13X0 Preterm labor second trimester with preterm delivery third trimester, not applicable or unspecified (principal); Z37.0 Single live birth; O69.81X0 Labor and delivery complicated by cord around neck, without compression, not applicable or unspecified; Z3A.35 35 weeks gestation of pregnancy
CPT/HCPCS: 62322; 76815; 76818; 81001; 81003; 84112; 85025; 85610; 85730; 86592; 86850; 86900; 86901; 87086; 87340; 90716; 99464; G0463; J0290; J1885; J2590; J3010; J7040; J7120